=== PATIENT | male | born 1985 | race Two or more races ===

== ENCOUNTER 2017-01-01 08:54 | Day surgery (SDC) | payer BC ==
[2017-01-01] MEDS ORDERED: ACETAMINOPHEN 325 MG TABLET ONE (09:21)
[2017-01-01] MEDS ORDERED: KETOROLAC TROMETHAMINE INJ 30 MG/ML VIAL ONE (09:21)
[2017-01-01] MEDS ORDERED: CELECOXIB 100 MG CAPSULE ONE (09:21)
[2017-01-01] MEDS ORDERED: oxyCODONE HCL SR 10MG TAB.SR.12H PO ONE (09:21)
[2017-01-01 09:40] LABS: BASOPHILS % (AUTO) 0.6 % (0.0-2.0); EOSINOPHILS # (AUTO) 0.1 /CMM (0.0-0.7); EOSINOPHILS % (AUTO) 1.4 % (0.0-6.0); HEMATOCRIT 47 % (39-51); HEMOGLOBIN 15.9 g/dL (13.5-17.5); LYMPHOCYTES # (AUTO) 2.3 /CMM (0.8-4.8); LYMPHOCYTES % (AUTO) 43.8 % (20.0-44.0); MEAN CORPUSCULAR HEMOGLOBIN 30 PG (26.0-33.0); MEAN CORPUSCULAR HGB CONC 34 g/dl (31.0-36.0); MEAN CORPUSCULAR VOLUME 88 fL (80-96); MONOCYTES # (AUTO) 0.5 /CMM (0.1-1.30); MONOCYTES % (AUTO) 8.5 % (2.0-12.0); NEUTROPHILS # (AUTO) 2.4 /CMM (1.8-8.9); NEUTROPHILS % (AUTO) 45.7 % (43.0-81.0); PLATELET COUNT (AUTO) 342 /CMM (150-450); RDW COEFFICIENT OF VARIATION 13.6 (11.5-15.0); RED BLOOD CELL COUNT(AUTO) 5.31 MIL/uL (4.5-6.0); WHITE BLOOD COUNT (AUTO) 5.3 K/uL (4.3-11.0)
[2017-01-01] MEDS ORDERED: BUPIVACAINE 0.5 % PF 150 MG/30 ML VIAL ONE (09:54)
[2017-01-01] MEDS ORDERED: HEMOSTATIC MATRIX 10 ML 1 EACH PAD MC ONE (09:54)
[2017-01-01] MEDS ORDERED: ANESTHESIA TRAY IN PYXIS 1 EA TRAY MC ONE (09:54)
[2017-01-01] MEDS ORDERED: LIDOCAINE 0.5%-EPI 1:200,000 50 ML VIAL ONE (09:55)
[2017-01-01] MEDS ORDERED: methylPREDNISolone ACETATE 80 MG/ML VIAL ONE (09:55)
[2017-01-01] MEDS ORDERED: BACITRACIN 50000 UNITS/VIAL ONE (09:56)
[2017-01-01] MEDS ORDERED: LIDOCAINE MPF 1%-EPI 1:200,000 30 ML VIAL IJ ONE (09:58)
[2017-01-01] MEDS ORDERED: HYDROMORPHONE INJ 2 MG/ML DISP.SYRIN ONE (10:06)
[2017-01-01] MEDS ORDERED: ROCURONIUM BROMIDE 50 MG/5 ML ONE (10:06)
[2017-01-01] MEDS ORDERED: MIDAZOLAM HCL 2 MG/2ML VIAL ONE (10:06)
[2017-01-01] MEDS ORDERED: METHYLENE BLUE AMP (1ML) 1 ML AMPUL ONE (10:13)
[2017-01-01] MEDS ORDERED: DESFLURANE 240 ML BOTTLE IH ONE (11:29)
[2017-01-01] MEDS ORDERED: ONDANSETRON HCL/PF 4 MG/2 ML VIAL IV PRN (13:00)
[2017-01-01] MEDS ORDERED: ACETAMINOPHEN 325 MG TABLET PO PRN (13:00)
[2017-01-01] MEDS ORDERED: oxyCODONE/APAP (5/325 MG) 1 UDTAB TABLET PO PRN (13:00)
== END 2017-01-01 13:43 | disposition home or self-care (01) ==
LOC: DS 08:54
PROVIDERS: ATTEND Specialist
DX: M51.17 Intervertebral disc disorders with radiculopathy, lumbosacral region (principal); Z88.6 Allergy status to analgesic agent
CPT/HCPCS: 36415; 63030; 72020; 85025; J1040; J1885; J2250; J3490 ×2; Q9968; 88304-TC; 88305-TC; 88311-TC; A6209; A6402; J0690; J1100; J1170; J2405; J2704; J2710